=== PATIENT | male | born 1985 | race American Indian/Alaskan Native ===

== ENCOUNTER 2017-08-16 17:31 | Emergency (ER) | payer MEDICAID ==
[2017-08-16 18:04] VITALS: BP 127/71; PULSE 88; RESP 18; TEMP 100.4; O2SAT 97
[2017-08-16 18:05] VITALS: BMI 21.2
--- NOTE | 2017-08-16 18:25 | C.PDOC ---
History Of Present Illness 31 y/o male with PMHx Seizure Disorder not on medication (last seizure 5-6 months ago), here today complaining of body aches, headache that is better with Motrin, neck pain, fever (103F yesterday at PMD), cough, ear fullness, shortness of breath for the last 5 days. He was seen by Dr. Palafox yesterday who gave him Motrin 800 mg and Promethazine DM. 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 Today , he continued to feel poorly and family brought him in for evaluation. Patient denies any abdominal pain, neck pain, back pain, or other complaint. Time Seen by Provider: 08/16/17 18:14 Chief Complaint (Nursing): Flu-like Symptoms History Per: Patient Onset/Duration Of Symptoms: Days (5) Current Symptoms Are (Timing): Still Present Location Of Pain: Ear(s) Associated Symptoms: Fever, Cough. denies: Nausea Severity: Moderate Recent travel outside of the [place]: No Additional History Per: Patient Past Medical History Vital Signs: Last Vital Signs Temp 100.4 F H 08/16/17 18:04 Pulse 88 08/16/17 18:04 Resp 18 08/16/17 18:04 BP 127/71 08/16/17 18:04 Pulse Ox 97 08/16/17 18:26 - Medical History PMH: Seizures (uncontrolled, last Summer 2016) Surgical History: No Surg Hx - Social History Hx Alcohol Use: No Hx Substance Use: Yes - Immunization History Hx Tetanus Toxoid Vaccination: No Hx Influenza Vaccination: No Hx Pneumococcal Vaccination: No Review Of Systems Constitutional: Positive for: Fever, Chills Cardiovascular: Negative for: Chest Pain Respiratory: Positive for: Cough, Shortness of Breath Gastrointestinal: Negative for: Nausea, Vomiting, Abdominal Pain Musculoskeletal: Positive for: Neck Pain. Negative for: Back Pain Neurological: Positive for: Headache Physical Exam - Physical Exam Appears: Well, Non-toxic, No Acute Distress Skin: Normal Color, Warm, Dry Head: Atraumatic, Normacephalic Ear(s): Left: Normal, Right: Normal Nose: Normal Oral Mucosa: Moist Tongue: Normal Appearing Throat: Normal, No Erythema, No Exudate Neck: Normal, Supple Chest: No Deformity Cardiovascular: Rhythm Regular Respiratory: Normal Breath Sounds Extremity: Normal ROM Neurological/Psych: Oriented x3 ED Course And Treatment O2 Sat by Pulse Oximetry: 97 (RA) Pulse Ox Interpretation: Normal Medical Decision Making Medical Decision Making: Impression: Influenza Plan: Patient medically stable on recommended treatment as prescribed by Dr. Palafox. Recommended that he continue the course and return with any new/worsening/ unresolved complaints. Patient discharged in stable condition. Disposition Counseled Patient/Family Regarding: Diagnosis, Need For Followup - Disposition Disposition: HOME/ ROUTINE Disposition Time: 18:25 Condition: STABLE Additional Instructions: Rest, follow up with your doctor. Take Motrin and Tylenol together every 6 hours for fever and pain. Instructions: Influenza (ED) Forms: [facility] (Latvian), General Discharge Instructions - POA Present On Arrival: None - Clinical Impression Clinical Impression: Influenza-like illness - Scribe Statement The provider has reviewed the documentation as recorded by the Scribazar Fitzpatrick Provider Scribe
== END 2017-08-16 18:54 | disposition home or self-care (01) ==
LOC: C.ER 17:31
DX: J11.1 Influenza due to unidentified influenza virus with other respiratory manifestations (principal)

== ENCOUNTER 2017-12-19 15:24 | Inpatient (IN) | payer MEDICAID ==
[2017-12-19 15:24] VITALS: BMI 21.2
--- NOTE | 2017-12-19 16:12 | C.PDOC ---
Time Seen by Provider: 12/19/17 16:10 Chief Complaint (Nursing): Male Genitourinary Past Medical History Vital Signs: Last Vital Signs Temp 98.1 F 12/19/17 15:34 Pulse 70 12/19/17 15:34 Resp 17 12/19/17 15:34 BP 121/76 12/19/17 15:34 Pulse Ox 99 12/19/17 15:34 - Medical History PMH: Seizures (uncontrolled, last Summer 2016) Family History: States: Unknown Family Hx - Social History Hx Alcohol Use: No Hx Substance Use: Yes - Immunization History Hx Tetanus Toxoid Vaccination: No Hx Influenza Vaccination: No Hx Pneumococcal Vaccination: No ED Course And Treatment O2 Sat by Pulse Oximetry: 99 Progress - Re-Evaluation Re-evaluation Note: 12/19/17 16:12 d/w linda Disposition - Disposition
--- NOTE | 2017-12-19 16:26 | C.PDOC ---
History Of Present Illness Patient is a 32 y/o male who presents to the ED by referral of PMD for evaluation of a possible penile abscess. Patient reports onset occurred after shaving area 4 days ago. Admits to pain, increased swelling, and discharge 2 days ago. Denies any fever or eating/drinking anything since yesterday. No other physical complaints. POSSIBLE PENILE ABSCESS X 4 DAYS. ONSET AFTER SHAVING AREA. INCR SWELLING, PAIN. +DC 2 DAYS AGO. NO FEVER. REFERRED BY PMD FOR EVAL EXAM NONTOXIC SKIN +ABSCESS BASE OF PENILE SHAFT NO CELLULITIS CIRCUMSCISED REMAINDER NEG NPO SINCE YEST Time Seen by Provider: 12/19/17 16:10 Chief Complaint (Nursing): Male Genitourinary History Per: Patient History/Exam Limitations: no limitations Onset/Duration Of Symptoms: Days (4) Current Symptoms Are (Timing): Still Present Quality Of Symptoms: Painful, Swollen, Draining (discharge) Recent travel outside of the [place]: No Past Medical History Reviewed: Historical Data, Nursing Documentation, Vital Signs Vital Signs: Last Vital Signs Temp 98.1 F 12/19/17 15:34 Pulse 70 12/19/17 15:34 Resp 17 12/19/17 15:34 BP 121/76 12/19/17 15:34 Pulse Ox 99 12/19/17 16:29 - Medical History PMH: Seizures (uncontrolled, last Summer 2016) Surgical History: No Surg Hx Family History: States: No Known Family Hx - Social History Hx Tobacco Use: Yes (light smoker) Hx Alcohol Use: No Hx Substance Use: Yes - Immunization History Hx Tetanus Toxoid Vaccination: No Hx Influenza Vaccination: No Hx Pneumococcal Vaccination: No Review Of Systems Constitutional: Negative for: Fever Genitourinary: Negative for: Dysuria, Frequency, Penile Discharge Skin: Positive for: Other (abscess to penile area; positive discharge) Physical Exam - Physical Exam Appears: Non-toxic, No Acute Distress Skin: Normal Color, Warm, Dry, Other (abscess at base of penile shaft; negative cellulitis) Head: Atraumatic, Normacephalic Oral Mucosa: Moist Chest: Symmetrical Cardiovascular: Rhythm Regular, No Murmur Respiratory: Normal Breath Sounds, No Rales, No Rhonchi, No Wheezing Gastrointestinal/Abdominal: Soft, No Tenderness, Other (NPO since yesterday) Male Genital: Circumcised Neurological/Psych: Oriented x3, Normal Speech, Normal Cognition ED Course And Treatment O2 Sat by Pulse Oximetry: 99 Progress Note: Blood work ordered. IV fluids administered. Progress - Re-Evaluation Re-evaluation Note: 12/19/17 16:18 D/W DR EATON REQUESTING CONSULT DR Cielo IBRAHIM 12/19/17 16:19 D/W DR Cielo IBRAHIM WILL CONSULT, POSSIBLE O.R. TX. PT, PMD AGREES W ADMISSION. - Continuity of Care Discussed patient case with:: PMD Discussed pt. case with it web development consultant/specialty: Urology Disposition Counseled Patient/Family Regarding: Diagnosis, Need For Followup - Disposition Disposition: HOSPITALIZED Disposition Time: 16:28 Condition: STABLE Forms: [employer] [facility] (Azeri) - POA Present On Arrival: None - Clinical Impression Clinical Impression: Penile abscess - Scribe Statement The provider has reviewed the documentation as recorded by the Scribe Luda Garcia All medical record entries made by the Scribe were at my direction and personally dictated by me. I have reviewed the chart and agree that the record accurately reflects my personal performance of the history, physical exam, medical decision making, and the department course for this patient. I have also personally directed, reviewed, and agree with the discharge instructions and disposition.
[2017-12-19] MEDS ORDERED: Sodium Chloride 0.9% 1,000 ML IV ONE (16:29)
[2017-12-19] MEDS ORDERED: Sodium Chloride 0.9% 1,000 ML ONE (17:02)
[2017-12-19 17:11] LABS: BASO # 0.1 K/uL (0.0-0.2); BASO % 0.6 % (0.0-2.0); EOS # 0.3 K/uL (0.0-0.7); EOS % 2.3 % (0.0-4.0); LYMPH # 2.3 K/uL (1.0-4.3); MEAN CELL VOLUME 92.9 fL (80.0-94.0); MEAN CORPUSCULAR HEMOGLOBIN 31.8 pg (27.0-31.0); MEAN CORPUSCULAR HGB CONC 34.2 g/dL (33.0-37.0); MEAN PLATELET VOLUME 9.2 fL (7.2-11.7); MONO # 0.9 K/uL (0.0-0.8); MONO % 7.2 % (0.0-10.0); NEUT # 9.1 K/uL (1.8-7.0); NEUT % 71.9 % (50.0-75.0); NRBC % 0.1 % (0.0-2.0); RBC 4.71 Mil/uL (4.40-5.90); RED CELL DISTRIBUTION WIDTH 12.6 % (11.5-14.5); WHITE BLOOD COUNT 12.7 K/uL (4.8-10.8)
[2017-12-19 17:17] LABS: INR 1.2; PROTHROMBIN TIME 13.4 SECONDS (9.7-12.2)
[2017-12-19 17:30] LABS: BLOOD UREA NITROGEN 12 mg/dL (9-20); CALCIUM 9.3 mg/dl (8.6-10.4); GFR AFRICAN-AMERICAN > 60; GFR NON-AFRICAN AMERICAN > 60
[2017-12-19 19:47] VITALS: RESP 20
[2017-12-20] MEDS: Piperacill/Tazo 2.25gm in Dex 2.25 GM/50 ML BAG IVPB SCH ×4 (02:13→20:00)
[2017-12-20] MEDS: Oxycodone/Acetaminophen 5/325 mg Tab PO PRN ×4 (06:06→22:17)
--- NOTE | 2017-12-20 07:46 | CP.PCM.PN ---
Subjective - Date & Time of Evaluation Date of Evaluation: 12/20/17 Time of Evaluation: 08:00 - Subjective Subjective: PGY2 medicine progress note for Dr. Kaminski: Patient was seen and examined at bedside this morning. Patient was admitted for a penile abscess which has worsened over the last couple days. Patient admits to tenderness in this area. He is able to urinate well. He denies fever/chill. He had not other complaints. Patient states he has a history of seizures, last one earlier this year but he has never followed up with a neurologist of taken medications. Denies recent seizure activity. Objective - Vital Signs/Intake and Output Vital Signs (last 24 hours): Temp Pulse Resp BP Pulse Ox 98.2 F 60 20 110/64 99 12/20/17 00:00 12/20/17 00:00 12/20/17 00:00 12/20/17 00:00 12/20/17 00:00 Intake and Output: 12/20/17 12/20/17 06:59 18:59 Intake Total 1490 Balance 1490 - Medications Medications: Current Medications Vancomycin/Sodium Chloride (Vancomycin 1 Gm/Ns 200 Ml) 1 gm in 200 mls @ 133.333 mls/hr IVPB Q12 SAMANTHA PRN Reason: Protocol Piperacillin Sod/Tazobactam Sod (Zosyn 2.25 Gm Iv Premix) 2.25 gm in 50 mls @ 100 mls/hr IVPB Q6H SAMANTHA PRN Reason: Protocol Last Admin: 12/20/17 02:13 Dose: 100 mls/hr Oxycodone/Acetaminophen (Percocet 5/325 Mg Tab) 1 tab PO Q4H PRN PRN Reason: Pain, severe (8-10) Stop: 12/23/17 01:35 Last Admin: 12/20/17 06:06 Dose: 1 tab - Labs Labs: 12/19/17 17:00 12/19/17 17:00 PT 13.4 SECONDS (9.7-12.2) H 12/19/17 17:00 INR 1.2 12/19/17 17:00 APTT 34 SECONDS (21-34) 12/19/17 17:00 - Constitutional Appears: Non-toxic, No Acute Distress - Head Exam Head Exam: ATRAUMATIC, NORMAL INSPECTION - Eye Exam Eye Exam: EOMI Pupil Exam: NORMAL ACCOMODATION - ENT Exam ENT Exam: Mucous Membranes Moist - Respiratory Exam Respiratory Exam: Clear to Ausculation Bilateral, NORMAL BREATHING PATTERN. absent: Respiratory Distress - Cardiovascular Exam Cardiovascular Exam: REGULAR RHYTHM, +S1, +S2 - GI/Abdominal Exam GI & Abdominal Exam: Soft, Normal Bowel Sounds. absent: Distended, Firm, Guarding, Tenderness - Exam Additional comments: skin abscess 3+ cm fluctuant tender with edma, draining purulent discharge - Extremities Exam Extremities Exam: Normal Inspection - Back Exam Back Exam: NORMAL INSPECTION - Neurological Exam Neurological Exam: Alert, Awake, Oriented x3 Neuro motor strength exam: Left Upper Extremity: 5, Right Upper Extremity: 5, Left Lower Extremity: 5, Right Lower Extremity: 5 - Psychiatric Exam Psychiatric exam: Normal Affect, Normal Mood - Skin Skin Exam: Normal Color Assessment and Plan - Assessment and Plan (Free Text) Assessment: Penile Abscess Dr. Cielo Horn consulted - help appreciated, will need I/D with cultures Zosyn 2.25 gram IVPB Q6 hours Vanc 1gram IVPB Q12 hours Percocet 1 tab PO Q4 prn pain WBC 12.7, afebrile Hx Seizures Outpatient work up does not take any medications and has not seen neurology No seizure activity but will monitor Prophylaxis GI - not indicated No therapeutic anticoagulation for procedure NPO SCDs All management and orders per Dr. Kaminski
[2017-12-20 08:10] LABS: BASO # 0.1 K/uL (0.0-0.2); BASO % 0.6 % (0.0-2.0); EOS # 0.5 K/uL (0.0-0.7); EOS % 3.7 % (0.0-4.0); HEMOGLOBIN 13.7 g/dL (12.0-18.0); LYMPH # 1.7 K/uL (1.0-4.3); LYMPH % 13.9 % (20.0-40.0); MEAN CELL VOLUME 91.5 fL (80.0-94.0); MEAN CORPUSCULAR HEMOGLOBIN 31.8 pg (27.0-31.0); MEAN CORPUSCULAR HGB CONC 34.8 g/dL (33.0-37.0); MEAN PLATELET VOLUME 8.7 fL (7.2-11.7); MONO # 1.1 K/uL (0.0-0.8); NEUT # 8.9 K/uL (1.8-7.0); NEUT % 72.8 % (50.0-75.0); RBC 4.3 Mil/uL (4.40-5.90); RED CELL DISTRIBUTION WIDTH 12.6 % (11.5-14.5); WHITE BLOOD COUNT 12.3 K/uL (4.8-10.8)
[2017-12-20 08:29] LABS: INR 1.2; PROTHROMBIN TIME 13.6 SECONDS (9.7-12.2)
[2017-12-20 08:34] LABS: ALB/GLOB RATIO 1.1 (1.0-2.1); ALBUMIN 3.5 g/dL (3.5-5.0); ALT/SGPT 21 U/L (21-72); AST/SGOT 22 U/L (17-59); BLOOD UREA NITROGEN 14 mg/dL (9-20); CALCIUM 8.8 mg/dl (8.6-10.4); GFR AFRICAN-AMERICAN > 60; GFR NON-AFRICAN AMERICAN > 60
[2017-12-20] MEDS: Vancomycin 1 gm/NS 200 ml 1 GM/200 ML BAG IVPB SCH ×2 (11:13→22:15)
[2017-12-20] MEDS ORDERED: Morphine 4 MG/ML VIAL IVP ONE (11:15)
--- NOTE | 2017-12-20 11:49 | PCM.URO ---
Urology Progress Note - Objective Lab Studies: Reviewed (thanks for gu consult plans as outlined and note to be dictated) Lab Results Last 24 Hours: Laboratory Results - last 24 hr 12/19/17 12/19/17 12/19/17 17:00 17:00 17:00 WBC 12.7 H RBC 4.71 Hgb 15.0 Hct 43.8 MCV 92.9 MCH 31.8 H MCHC 34.2 RDW 12.6 Plt Count 179 MPV 9.2 Neut % (Auto) 71.9 Lymph % (Auto) 18.0 L Hanson % (Auto) 7.2 Eos % (Auto) 2.3 Baso % (Auto) 0.6 Neut # (Auto) 9.1 H Lymph # (Auto) 2.3 Hanson # (Auto) 0.9 H Eos # (Auto) 0.3 Baso # (Auto) 0.1 PT 13.4 H INR 1.2 APTT 34 Sodium 144 Potassium 4.3 Chloride 105 Carbon Dioxide 27 Anion Gap 16 BUN 12 Creatinine 1.0 Est GFR ( Amer) > 60 Est GFR (Non-Af Amer) > 60 Random Glucose 82 Calcium 9.3 Magnesium Total Bilirubin AST ALT Alkaline Phosphatase Total Protein Albumin Globulin Albumin/Globulin Ratio Blood Type Antibody Screen 12/19/17 12/20/17 12/20/17 17:00 08:00 08:00 WBC 12.3 H RBC 4.30 L Hgb 13.7 Hct 39.3 MCV 91.5 MCH 31.8 H MCHC 34.8 RDW 12.6 Plt Count 201 MPV 8.7 Neut % (Auto) 72.8 Lymph % (Auto) 13.9 L Hanson % (Auto) 9.0 Eos % (Auto) 3.7 Baso % (Auto) 0.6 Neut # (Auto) 8.9 H Lymph # (Auto) 1.7 Hanson # (Auto) 1.1 H Eos # (Auto) 0.5 Baso # (Auto) 0.1 PT 13.6 H INR 1.2 APTT 39 H D Sodium Potassium Chloride Carbon Dioxide Anion Gap BUN Creatinine Est GFR ( Amer) Est GFR (Non-Af Amer) Random Glucose Calcium Magnesium Total Bilirubin AST ALT Alkaline Phosphatase Total Protein Albumin Globulin Albumin/Globulin Ratio Blood Type O POSITIVE Antibody Screen Negative 12/20/17 08:00 WBC RBC Hgb Hct MCV MCH MCHC RDW Plt Count MPV Neut % (Auto) Lymph % (Auto) Hanson % (Auto) Eos % (Auto) Baso % (Auto) Neut # (Auto) Lymph # (Auto) Hanson # (Auto) Eos # (Auto) Baso # (Auto) PT INR APTT Sodium 139 Potassium 4.2 Chloride 106 Carbon Dioxide 24 Anion Gap 14 BUN 14 Creatinine 0.9 Est GFR ( Amer) > 60 Est GFR (Non-Af Amer) > 60 Random Glucose 90 Calcium 8.8 Magnesium 1.8 Total Bilirubin 1.3 AST 22 ALT 21 Alkaline Phosphatase 79 Total Protein 6.7 Albumin 3.5 Globulin 3.1 Albumin/Globulin Ratio 1.1 Blood Type Antibody Screen Intake & Output: Intake & Output 12/19/17 12/20/17 12/20/17 18:59 06:59 18:59 Intake Total 1490 Balance 1490 Weight 156 lb Intake: Intake, IV Amount 950 Left Antecubital 950 Oral 540 Other: # Voids Urine, Voided 2 # Bowel Movements 0 Vital Signs: Vital Signs - 24 hr 12/19/17 12/19/17 12/19/17 15:34 16:46 18:12 Temperature 98.1 F Pulse Rate 70 59 L Respiratory 17 17 Rate Blood Pressure 121/76 120/77 O2 Sat by Pulse 99 99 99 Oximetry 12/19/17 12/20/17 12/20/17 18:55 00:00 08:00 Temperature 98.0 F 98.2 F 97.5 F L Pulse Rate 65 60 59 L Respiratory 20 20 20 Rate Blood Pressure 128/80 110/64 131/84 O2 Sat by Pulse 98 99 100 Oximetry
[2017-12-21] MEDS: Piperacill/Tazo 2.25gm in Dex 2.25 GM/50 ML BAG IVPB SCH ×2 (01:57→19:00)
[2017-12-21] MEDS: Oxycodone/Acetaminophen 5/325 mg Tab PO PRN ×4 (06:28→21:30)
[2017-12-21 06:52] LABS: BASO # 0.1 K/uL (0.0-0.2); BASO % 1.2 % (0.0-2.0); EOS # 0.6 K/uL (0.0-0.7); EOS % 5.7 % (0.0-4.0); HEMOGLOBIN 14.8 g/dL (12.0-18.0); LYMPH % 19.4 % (20.0-40.0); MEAN CELL VOLUME 92.5 fL (80.0-94.0); MEAN CORPUSCULAR HEMOGLOBIN 32.2 pg (27.0-31.0); MEAN CORPUSCULAR HGB CONC 34.8 g/dL (33.0-37.0); MEAN PLATELET VOLUME 8.6 fL (7.2-11.7); MONO # 0.9 K/uL (0.0-0.8); MONO % 9.1 % (0.0-10.0); NEUT # 6.6 K/uL (1.8-7.0); NEUT % 64.6 % (50.0-75.0); RBC 4.6 Mil/uL (4.40-5.90); WHITE BLOOD COUNT 10.2 K/uL (4.8-10.8)
[2017-12-21 08:19] LABS: ALB/GLOB RATIO 1.1 (1.0-2.1); ALBUMIN 3.6 g/dL (3.5-5.0); ALT/SGPT 13 U/L (21-72); AST/SGOT 28 U/L (17-59); BLOOD UREA NITROGEN 12 mg/dL (9-20); CALCIUM 8.8 mg/dl (8.6-10.4); GFR AFRICAN-AMERICAN > 60; GFR NON-AFRICAN AMERICAN > 60
[2017-12-21] MEDS: Vancomycin 1 gm/NS 200 ml 1 GM/200 ML BAG IVPB SCH ×2 (10:09→21:29)
--- NOTE | 2017-12-21 11:09 | CP.PCM.PN ---
Subjective - Date & Time of Evaluation Date of Evaluation: 12/21/17 Time of Evaluation: 11:09 - Subjective Subjective: Progress Note for Dr. Kaminski Patient seen and examined at bedside. No acute events reported overnight. Patient still complains of from the penile abscess. Patient states it improved slight after bedside I&D yesterday evening. Patient is tolerating diet well. He denies having fever, chills, headache, nausea, vomiting, or diarrhea. Objective - Vital Signs/Intake and Output Vital Signs (last 24 hours): Temp Pulse Resp BP Pulse Ox 97.6 F 60 20 143/86 98 12/21/17 08:00 12/21/17 08:00 12/21/17 08:00 12/21/17 08:00 12/21/17 08:00 Intake and Output: 12/21/17 12/21/17 06:59 18:59 Intake Total 840 Balance 840 - Medications Medications: Current Medications Oxycodone/Acetaminophen (Percocet 5/325 Mg Tab) 1 tab PO Q4H PRN PRN Reason: Pain, severe (8-10) Stop: 12/23/17 01:35 Last Admin: 12/21/17 10:13 Dose: 1 tab Pneumococcal Polyvalent Vaccine (Pneumovax 23 Vaccine) 0.5 ml IM .ONCE ONE Stop: 12/22/17 10:01 - Labs Labs: 12/21/17 06:44 12/21/17 06:44 PT 13.6 SECONDS (9.7-12.2) H 12/20/17 08:00 INR 1.2 12/20/17 08:00 APTT 39 SECONDS (21-34) H D 12/20/17 08:00 - Additional Findings Additional findings: - Constitutional Appears: Non-toxic, No Acute Distress - Head Exam Head Exam: ATRAUMATIC, NORMAL INSPECTION - Eye Exam Eye Exam: EOMI Pupil Exam: NORMAL ACCOMODATION - ENT Exam ENT Exam: Mucous Membranes Moist - Respiratory Exam Respiratory Exam: Clear to Ausculation Bilateral, NORMAL BREATHING PATTERN. absent: Respiratory Distress - Cardiovascular Exam Cardiovascular Exam: REGULAR RHYTHM, +S1, +S2 - GI/Abdominal Exam GI & Abdominal Exam: Soft, Normal Bowel Sounds. absent: Distended, Firm, Guarding, Tenderness - Exam Additional comments: skin abscess fluctuant tender with edma, draining minimal purulent discharge - Extremities Exam Extremities Exam: Normal Inspection - Back Exam Back Exam: NORMAL INSPECTION - Neurological Exam Neurological Exam: Alert, Awake, Oriented x3 Neuro motor strength exam: Left Upper Extremity: 5, Right Upper Extremity: 5, Left Lower Extremity: 5, Right Lower Extremity: 5 - Psychiatric Exam Psychiatric exam: Normal Affect, Normal Mood - Skin Skin Exam: Normal Color Assessment and Plan - Assessment and Plan (Free Text) Assessment: Penile Abscess Dr. Cielo Horn consulted - help appreciated, s/p penile I/D day 1 Zosyn 2.25 gram IVPB Q6 hours Vanc 1gram IVPB Q12 hours Percocet 1 tab PO Q4 prn pain No leukocytosis, afebrile Hx Seizures Outpatient work up does not take any medications and has not seen neurology No seizure activity but will monitor Prophylaxis GI - not indicated No therapeutic anticoagulation for procedure NPO SCDs All management and orders per Dr. Kaminski
[2017-12-22] MEDS: Piperacill/Tazo 2.25gm in Dex 2.25 GM/50 ML BAG IVPB SCH ×4 (00:32→17:57)
[2017-12-22] MEDS: Oxycodone/Acetaminophen 5/325 mg Tab PO PRN ×3 (08:58→17:55)
[2017-12-22] MEDS ORDERED: Pneumococcal 23-Valent Vaccine IM ONE (10:00)
[2017-12-22] MEDS: Saccharomyces Boulardi 250 mg Cap PO SCH ×2 (10:12→17:56)
[2017-12-22] MEDS: Vancomycin 1 gm/NS 200 ml 1 GM/200 ML BAG IVPB SCH ×2 (10:13→21:50)
[2017-12-23] MEDS: Piperacill/Tazo 2.25gm in Dex 2.25 GM/50 ML BAG IVPB SCH ×3 (00:10→11:16)
[2017-12-23] MEDS: Oxycodone/Acetaminophen 5/325 mg Tab PO PRN (02:01)
[2017-12-23 08:00] VITALS: BP 110/63; PULSE 63; TEMP 97.3; O2SAT 100
[2017-12-23] MEDS ORDERED: Oxycodone/Acetaminophen 5/325 mg Tab PO PRN (09:27)
[2017-12-23] MEDS: Vancomycin 1 gm/NS 200 ml 1 GM/200 ML BAG IVPB SCH (09:38)
[2017-12-23] MEDS: Saccharomyces Boulardi 250 mg Cap PO SCH (09:38)
--- NOTE | 2017-12-24 08:45 | PN ---
DATE: 12/22/2017 SUBJECTIVE: The patient on supportive care and IV antibiotics. ____ will follow. Meri Kaminski MD
--- NOTE | 2017-12-24 08:50 | HP ---
HISTORY OF PRESENT ILLNESS: The patient is a 32-year-old male, admitted to the hospital with chief complaint of swelling of the penis. The patient had infection at the shaving noted swelling. Went to office, advised admission to the hospital. The patient has seizure. PHYSICAL EXAMINATION: GENERAL: The patient is awake, alert, and oriented. VITAL SIGNS: Temperature 98, pulse 90. HEENT: Within normal limits. NECK: Supple. CHEST: Symmetrical. HEART: Regular. ABDOMEN: Soft. EXTREMITIES: No edema. The penis is enlarged with abscess at the base of the penis. penile infection. The patient is on IV antibiotic, urology consult. Meri Kaminski MD
--- NOTE | 2017-12-25 05:02 | CON ---
DATE: UROLOGY CONSULTATION REASON FOR CONSULTATION: For a "penile abscess." See below. SUBJECTIVE: The patient presents with a "bump" in his penis as he described it. It has been going on. It has been painful and uncomfortable to the patient. He now presents with findings consistent with an abscess, and he is admitted to the hospital and Urology is consulted for further recommendations. See the plan below and see the separately dictated procedure note where we described it. PAST MEDICAL/SURGICAL HISTORY: As listed in the chart. No other urologic significant history. REVIEW OF SYSTEMS: As listed above. Otherwise noncontributory with no weight loss, chest pain, or shortness of breath. MEDICATIONS: See the chart. ALLERGIES: . From Urology standpoint, he has no real urinary symptoms. No dysuria or burning. He does not recall any trauma to the penis. In terms of previous episodes of similar findings of hair follicles, etc, or another part of his body, the patient does not give a good adequate history. See below or recent shaving or trauma to the area. We talked about this as well, see below. On surgical grounds, he is in no apparent distress. He is currently resting comfortably in no apparent distress. PHYSICAL EXAMINATION: VITAL SIGNS: Noted to be within normal limits. LUNGS: Clear. HEART: Normal S1 and S2. ABDOMEN: Overall soft. It is not grossly distended. No evidence of rebound, guarding. No evidence of acute abdomen. He has normal bowel sounds. At the shaft of penis on the patient's right side, there is about a 1 to 2 cm lesion that looks to be an infected caruncle. See below plans and see the separately dictated procedure notes. He has no other similar lesions. His skin and hair as noted. The labs are noted. The urology consult was requested for further recommendation. We had spoken to the emergency room at the time of this followup. At the bedside, we lanced it as best as possible, make an incision and drained the abscess. We got out purulent material and made a nice incision and put a little Betadine packing inside at the bedside. See separately dictated note. I had premedicated the patient with his oral analgesics. I gave an extra dose of morphine. Take off some of the edge. with draining the abscess. See the separately dictated procedure note. DIAGNOSIS: Skin abscess. PLAN: 1. Check cultures. 2. Maintain current antibodies. 3. Wet to dry dressings or packings with the Iodoform packing. 4. Make further plans. We will follow. Rafi Horn MD
--- NOTE | 2017-12-25 06:29 | OP ---
PROCEDURE DATE: 12/20/2017 PREOPERATIVE DIAGNOSIS: Penile abscess. POSTOPERATIVE DIAGNOSIS: Penile abscess. PROCEDURE: Incision at the bedside and placement of Iodoform packing. COMPLICATIONS: There were no complications. See the addendum at the end. ESTIMATED BLOOD LOSS: Less than 10 mL. SPECIMEN SENT OUT: Culture. INDICATIONS: See history and physical and consultation. The patient presents with an abscess. DESCRIPTION OF PROCEDURE: We actually were going to try and do this in the ER, the patient was made n.p.o. However, when we learned that he is not n.p.o., I provided extra analgesic. For the patient, I provided a dose of morphine. Due to time constraint and OR scheduling and personal scheduling issuing. I explained this to the patient with my great apologizes. I explained to him that it still need to be drained. We would like to try to help him as we can. Throughout the bedside, we dressed him with Betadine. We are not able to make a cruciate incision, which is what I would normal make . No major foul odor. Some white purulent material. Cultures were sent. Since the patient is on antibiotics already anyway though. cultures either if they are negative, but there is definitely drainage that needs to be done. At this point, we inspected the wound more closely. We packed it with Iodoform packing and then placed a dry sterile dressing on top. Although, the patient tolerated the procedure without any complications. The patient with plans will be as follows: 1. Antibiotics. 2. Analgesics. 3. Local wound care. to follow. I explained to the patient also apologetically for his discomfort and pain, I have explained to the patient that I will not be in and that he should call me, I would further plan and update. Rafi Horn MD
== END 2017-12-23 16:45 | disposition home or self-care (01) | DRG 341 ==
LOC: C.ER 15:24 → C.9E 16:29 → C.3T 17:54 → OBSVTOIN 12-22 14:50
PROVIDERS: ADMIT Internal Medicine Pulmonary Disease; ATTEND Internal Medicine Pulmonary Disease
PROC: 0V9 Male Reproductive System, Drainage (ICD-10-PCS; principal; 2017-12-20)
DX: N48.21 Abscess of corpus cavernosum and penis (principal); R56.9 Unspecified convulsions